=== PATIENT | female | born 1955 | race Caucasian/White ===

== ENCOUNTER → 2024-11-09 07:46 | Outpatient (RCR) | payer MEDICARE, OTHER, SELFPAY | LOC: ROT 07:46 | PROVIDERS: ATTENDING PHYSICIAN Orthopaedic Surgery; FAMILY PHYSICIAN Internal Medicine Geriatric Medicine | DX: M79.641 Pain in right hand (principal); Z73.6 Limitation of activities due to disability; S62.602D Fracture of unspecified phalanx of right middle finger, subsequent encounter for fracture with routine healing; S62.604D Fracture of unspecified phalanx of right ring finger, subsequent encounter for fracture with routine healing; X58.XXXD Exposure to other specified factors, subsequent encounter | CPT/HCPCS: 97018; 97166; 97535 ==